=== PATIENT | female | born 1935 | race Hispanic/Latino ===

== ENCOUNTER 2020-04-02 05:40 | Day surgery (SDC) | payer MEDICARE ==
[2020-03-31 12:20] LABS: BASOPHILS % (AUTO) 0.4 % (0.0-5.0); EOSINOPHILS % (AUTO) 0.8 % (0.0-8.0); HEMATOCRIT 37.1 % (36-48); LYMPHOCYTES % (AUTO) 26.3 % (21.0-51.0); MEAN CORPUSCULAR HEMOGLOBIN 30.8 pg (27.0-33.0); MEAN CORPUSCULAR HGB CONC 31.8 g/dL (32.0-36.0); MEAN CORPUSCULAR VOLUME 96.9 fL (79-99); MONOCYTES % (AUTO) 5.1 % (3.0-13.0); NEUTROPHILS % (AUTO) 67.2 % (40.0-77.0); PLATELET COUNT (AUTO) 299 K/uL (130-400); RED BLOOD CELL COUNT(AUTO) 3.83 MIL/uL (4.00-5.50); RED CELL DISTRIBUTION WIDTH 14.6 % (11.0-15.5); WHITE BLOOD COUNT (AUTO) 8.4 K/uL (4.8-10.8)
[2020-03-31 12:29] LABS: CREATININE 0.8 mg/dL (0.5-1.5); POTASSIUM 4.9 mmol/L (3.5-5.1)
[2020-03-31 12:35] LABS: INR 0.92 (0.85-1.15); PARTIAL THROMBOPLASTIN TIME 25.9 SEC (26.3-35.5)
[2020-04-01 15:51] VITALS: BP 119/60
[2020-04-02] VITALS (12 sets, daily range): BP systolic 96–145; BP diastolic 40–64
[~2020-04-02 05:40] MED LIST: AEC81 PO; AMIT25TA9 PO; ATEN50TA PO; ATOR10 PO; LORA10TA7 PO
[2020-04-02] MEDS ORDERED: SODIUM CHLORIDE 0.9% 1000ML 1,000 ML IV ONE (06:13)
--- NOTE | 2020-04-02 06:15 | NUR ---
PREOP PT ARRIVED VIA W/C IN NO DISTRESS. NO FAMILY WITH PATIENT. PT HERE FOR BIV PACEMAKER UPGRADE. PT ORIENTED TO ROOM AND CALL LIGHT. 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 WILL CONT TO MONITOR PT.
[2020-04-02] MEDS ORDERED: CEFAZOLIN SODIUM 1 GM VIAL IVP SCH ×3 (07:15→15:00)
[2020-04-02] MEDS ORDERED: BUPIVACAINE/PF 0.25% 30ML VIAL IJ ONE (07:21)
[2020-04-02] MEDS ORDERED: CEFAZOLIN SODIUM 1 GM VIAL ONE ×2 (07:21→13:47)
[2020-04-02] MEDS ORDERED: MIDAZOLAM HCL 1 MG/ML 2ML VIAL ONE ×4 (07:22→10:03)
[2020-04-02] MEDS ORDERED: IODIXANOL 320 MG/ML 100 ML VIAL ONE (07:22)
[2020-04-02] MEDS ORDERED: MEPERIDINE-PF 25 MG/ML SYG ONE ×4 (07:22→10:03)
[2020-04-02] MEDS ORDERED: LIDOCAINE HCL 1% MDV 50ML VIAL ONE (07:22)
--- NOTE | 2020-04-02 07:27 | NUR ---
CATH PT TAKEN TO TRAINING AND DOCUMENTATION SPECIALIST VIA BED BY MARIBELL NEWSOME RN. PT IN NO DISTRESS.
[2020-04-02] MEDS ORDERED: THROMBIN-JMI 5000 UNIT/VIAL TP ONE (10:24)
--- NOTE | 2020-04-02 11:50 | NUR ---
POST OP RECEIVED PT POST PACEMAKER PLACEMENT. PT STILL DROWSY, BUT IN NO DISTRESS. PT CONNECTED TO FISH BAIT PICKER. DRESSING TO LEFT CHEST CLEAN AND DRY. WILL CONT TO MONITOR PT.
--- NOTE | 2020-04-02 14:55 | NUR ---
CXR LOT ASSOCIATE HERE TO DO CHEST X RAY.
--- NOTE | 2020-04-02 15:30 | NUR ---
REPORT CALLED EZEKIEL DE GUZMAN WITH DR GARSIA AND REPORTED CXR. OK FOR PT TO GO HOME
--- NOTE | 2020-04-02 15:35 | NUR ---
PRESSURE AFTER REMOVING PRESSURE DRESSING TO LEFT CHEST WALL NOTICED, BRUISING, SWELLING, SOFT HEMATOMA AND TENDERNESS. APPLIED PRESSURE TO SITE FOR 20 MINUTES. PT TOLERATED IT WELL.
--- NOTE | 2020-04-02 15:40 | NUR ---
late entry for 1535 pt has two quarter size hematomas noted.
--- NOTE | 2020-04-02 15:50 | NUR ---
REPORT CALLED EZEKIEL DE GUZMAN WITH DR GARSIA AND REPORTED AFTER REMOVING PRESSURE DRESSING PT HAS SOFT HEMATOMA, TENDER TO TOUCH WITH SWELLING AND BRUISING AND ALONG TOP LATERAL EDGE OF DRESSING WITH BLOOD STAIN. CHANNING RN STILL HOLDING PRESSURE. RECEIVED ORDERS TO REAPPLY PRESSURE DRESSING AND D/C PT HOME AND THEN FOR PT TO FOLLOW ON TUESDAY AT 8 AM FOR SITE ASSESSMENT.
--- NOTE | 2020-04-02 15:55 | NUR ---
PRESSURE DRESSING CHANNING RN REAPPLIED PRESSURE DRESSING TO LT CHEST WALL. NO CHANGES NOTED TO SITE PT STILL HAS TENDERNESS, SWELLING AND BRUISING. WILL CONTINUE TO ASSESS SITE FOR CHANGES PRIOR TO D/C
--- NOTE | 2020-04-02 17:10 | NUR ---
discharge pts left chest wall unchanged. pt and daughter given discharge instructions. ferny (daughter) instructed to continue to assess site and if bruising increases or hematoma get worst to go to nearest er. daughter also informed to leave pressure dressing on until tuesday follow up for site check at 8 am at the md office. both voiced understanding. pt taken out via w/c
== END 2020-04-02 17:10 | disposition home or self-care (01) ==
LOC: DAH 05:40
PROVIDERS: ATTEND Internal Medicine Cardiovascular Disease
DX: Z45.018 Encounter for adjustment and management of other part of cardiac pacemaker (principal); I44.2 Atrioventricular block, complete; I49.5 Sick sinus syndrome; I42.9 Cardiomyopathy, unspecified; I11.0 Hypertensive heart disease with heart failure; I50.42 Chronic combined systolic (congestive) and diastolic (congestive) heart failure; M19.90 Unspecified osteoarthritis, unspecified site; M81.0 Age-related osteoporosis without current pathological fracture; I25.10 Atherosclerotic heart disease of native coronary artery without angina pectoris; F41.9 Anxiety disorder, unspecified; F32.9 Major depressive disorder, single episode, unspecified; R91.8 Other nonspecific abnormal finding of lung field; Z79.82 Long term (current) use of aspirin; Z79.01 Long term (current) use of anticoagulants; Z79.899 Other long term (current) drug therapy
CPT/HCPCS: 33225; 33229; 36415; 71045; 80048; 85025; 85610; 85730; 93005; A4215 ×2; A4216; A4221; A4222; A4223 ×3; A4606; A4663; C1769 ×6; C1894; C1900; C2621; J0690 ×2; J2175 ×4; J2250 ×4; J3490 ×3; J7030 ×2; Q9967; 33228; 99156; 99157